=== PATIENT | female | born 2000 | race Two or more races ===

== ENCOUNTER 2025-06-04 16:05 | Emergency (ER) | payer OTHER ==
[~2025-06-04] VITALS: Ht 165.1 cm; Wt 74.8 kg
[2025-06-04 16:55] VITALS: BP 107/71; O2SAT 99
[2025-06-04] MEDS ORDERED: 8 HOUR650 MG PO (17:38)
== END 2025-06-04 19:29 | disposition home or self-care (01) ==
LOC: ER 16:06
DX: O99.891 Other specified diseases and conditions complicating pregnancy (principal); Z3A.01 Less than 8 weeks gestation of pregnancy; M54.50 Low back pain, unspecified; M62.830 Muscle spasm of back

== ENCOUNTER 2025-06-12 09:44 | Emergency (ER) | payer OTHER ==
[~2025-06-12] VITALS: Ht 165.1 cm; Wt 72.6 kg
[~2025-06-12 09:44] MED LIST: 8 HOUR650 MG PO
[2025-06-12 10:29] VITALS: BP 105/74; O2SAT 98
[2025-06-12] MEDS ORDERED: ONDANSETRON HCL 2 MG/ML VIAL IV STA (11:21)
[2025-06-12] MEDS ORDERED: FAMOTIDINE/PF 20 MG/2 ML VIAL IV STA (11:21)
[2025-06-12] MEDS ORDERED: FAMOTIDINE/PF 20 MG/2 ML VIAL ONE (12:34)
[2025-06-12] MEDS ORDERED: ONDANSETRON HCL 2 MG/ML VIAL ONE (12:34)
[2025-06-12 13:37] LABS: BASO % 0.2 % (0.1-1.2); EOS # 0.02 (0.04-0.54); EOS % 0.2 % (0.7-7.0); LYMPH # 2.30 (1.18-3.74); LYMPH % 20.4 % (19.3-53.1); MEAN PLATELET VOLUME 9.70 fl (9.4-12.4); MONO # 0.50 (0.24-0.82); MONO % 4.4 % (4.7-12.5); NEUT # 8.38 (1.56-6.13); NEUT % 74.5 % (34.0-71.1); RED CELL DISTRIBUTION WIDTH 12.7 % (11.6-14.4)
[2025-06-12 13:57] LABS: INR 1.03
[2025-06-12 14:12] LABS: URINE APPEARANCE Cloudy; URINE BILIRRUBIN Negative (NEGATIVE); URINE BLOOD Large; URINE COLOR Yellow; URINE GLUCOSE Negative (NEGATIVE); URINE KETONE Negative (NEGATIVE); URINE LEUKOCYTE Trace; URINE NITRATE Negative; URINE PROTEIN Negative (NEGATIVE); URINE UROBILINOGEN 0.2 E.U./dl
[2025-06-12 14:16] LABS: URINE EPITHELIAL CELLS 149.8 uL (0.0-38.8); URINE RBC 11.2 uL (0.0-20.8); URINE WBC 20.7 uL (0.0-23.2)
[2025-06-12 14:16] LABS: BUN CREA RATIO 8.0 (7.0-25.0); CREATININE SERUM 0.59 mg/dL (0.55-1.02); GFR 125.22; GLUCOSE FASTING 111.0 mg/dL (65-100); OSMOLALITY SERUM 275.0 MOSM/KG (275-295)
[2025-06-12 14:28] LABS: TYPE CELLS SQUAMOUS; URINE CAST 0.00 uL (0.0-1.40)
== END 2025-06-12 15:22 | disposition home or self-care (01) ==
LOC: ER 09:45
PROVIDERS: General Practice
DX: O20.8 Other hemorrhage in early pregnancy (principal); Z3A.08 8 weeks gestation of pregnancy